=== PATIENT | male | born 1995 | race Caucasian/White ===

== ENCOUNTER 2024-11-11 06:00 | Outpatient (REF) | payer BC, SELFPAY ==
--- NOTE | ~2024-11-11 | XR_ITS ---
CLINICAL HISTORY: ALLERGIC RHINITIS 4 view sinuses Comparison: None Findings: Bones are intact. No sinus fluid. Mastoids are clear. No radiopaque foreign body. IMPRESSION: 1. No acute findings This document has been electronically signed by: Barry Loja MD on 11/11/2024 06:54:08
--- NOTE | ~2024-11-11 | XR_ITS ---
CLINICAL HISTORY: FRACTURE OF RIGHT WRIST AND HAND 4 view right wrist Comparison: None Findings: The patient is status post open reduction internal fixation for scaphoid fracture. A threaded screw is present and alignment is anatomic. Fracture appears healed. The scaphoid and lunate may be partially fused. There is a remote fracture of the ulnar styloid. No significant loss of joint space, osteophyte, or erosions. No radiopaque foreign body. IMPRESSION: Status post open reduction internal fixation for scaphoid fracture. Fracture has healed. There is at least partial fusion of the scaphoid and lunate. This document has been electronically signed by: Barry Loja MD on 11/11/2024 06:57:08
[2024-11-11 06:15] LABS: MANUAL DIFF FLAG NO
[2024-11-11 07:35] LABS: Basophils Absolute Auto 0.1 X10*3/uL (0.0-0.2); Basophils Percent Auto 1.5 % (0-2); Eosinophils Absolute Auto 0.5 X10*3/uL (0.0-0.4); Eosinophils Percent Auto 7.3 % (0-4); Hematocrit 45.7 % (42.0-52.0); Hemoglobin 15.6 g/dl (14.0-18.0); Imm Gran Abs Auto 0.03 X10*3/uL (0.00-0.03); Imm Gran Pct Auto 0.5 % (0.0-0.4); Lymphocytes Absolute Auto 2.5 X10*3/uL (1.2-4.9); Mean Corpuscular HGB Conc 34.1 g/dl (31.0-36.0); Mean Corpuscular Hemoglobin 29.4 pg (27.0-33.0); Mean Corpuscular Volume 86.1 fL (80.0-98.0); Mean Platelet Volume 11.1 fL (9.4-12.4); Monocytes Absolute Auto 0.5 X10*3/uL (0.1-1.2); Monocytes Percent Auto 7.4 % (2-11); Neutrophils Absolute Auto 2.9 x10*3/uL (2.0-8.3); Neutrophils Percent Auto 45.3 % (45-73); Platelet Count 247 X10*3/uL (160-400); Red Blood Count 5.31 X10*6/uL (4.60-5.80); Red Cell Distribution Width 12.4 % (11.0-16.0); White Blood Count 6.5 X10*3/uL (4.8-10.8)
[2024-11-11 08:13] LABS: Alanine Aminotransferase 34 U/L (0-40); Albumin Level 4.6 g/dL (3.5-5.0); Alkaline Phosphatase 56 U/L (39-117); Anion Gap 15 (12-20); Aspartate Amino Transferase 29 U/L (5-37); Bilirubin Total 0.3 mg/dL (0.0-1.0); Blood Urea Nitrogen 12 mg/dL (9-16); Calcium 9.4 mg/dL (8.4-10.2); Carbon Dioxide 25 mmol/L (22-29); Chloride 105 mmol/L (96-108); Estimated Glomerular Filt Rate > 60; Glucose Random 96 mg/dL (60-115); Potassium 4.1 mmol/L (3.3-5.1); Sodium 141 mmol/L (135-145); Total Protein 7.9 g/dL (6.5-8.0)
[2024-11-11 08:28] LABS: Thyroid Stimulating Hormone 2.65 uIU/mL (0.32-4.0)
[2024-11-11 08:44] LABS: Folate 8.2 ng/mL (> or = 4.0); Vitamin B12 435 pg/mL (200-900)
[2024-11-17 11:23] LABS: Testosterone, Free 98.1 pg/mL (35.0-155.0); Testosterone, Total 488 ng/dL (250-1100)
== END 2024-11-11 06:01 | disposition home or self-care (01) ==
LOC: HO.XRAY 06:00
PROVIDERS: PCP Internal Medicine; Visit Provider Internal Medicine
DX: R53.83 Other fatigue (principal); S62.91XD Unspecified fracture of right hand, subsequent encounter for fracture with routine healing; J30.9 Allergic rhinitis, unspecified
CPT/HCPCS: 36415; 70220; 73110; 80053; 82306; 82607; 82746; 84402; 84403; 84443; 85025

== ENCOUNTER → 2024-11-11 06:17 | Outpatient (BNV) | payer BC, SELFPAY | PROVIDERS: PCP Internal Medicine; Visit Provider Radiology Diagnostic Radiology | DX: J30.9 Allergic rhinitis, unspecified (principal); S62.001D Unspecified fracture of navicular [scaphoid] bone of right wrist, subsequent encounter for fracture with routine healing | CPT/HCPCS: 70220; 73110 ==

== ENCOUNTER 2025-01-05 07:53 | Outpatient (REF) | payer BC, SELFPAY ==
--- NOTE | ~2025-01-05 | CT_ITS ---
EXAMINATION: CT SINUSES WITHOUT IV CONTRAST HISTORY: CHRONIC RECURRENT SINUSITIS TECHNIQUE: Serial 2 mm helically acquired images were obtained through the paranasal sinuses without IV contrast material. Sagittal and coronal reformatted images were also obtained. This CT exam was performed with one or more of the following dose reduction techniques: automated exposure control, adjustment of the mA and/or kV according to patient size, use of iterative reconstruction technique. DLP: 109 mGy-cm COMPARISON: Correlation is made to plain films of the paranasal sinuses dated 11/11/2024. FINDINGS: PARANASAL SINUSES: There is small lobulated soft tissue densities in the bilateral maxillary sinuses, consistent with polyps versus mucus retentions. There is mild mucosal thickening in the bilateral frontal, ethmoid, and sphenoid sinuses. No air/fluid levels are identified. The ostiomeatal complexes are patent bilaterally. The mastoid air cells and middle ear cavities are well pneumatized bilaterally. BONES/JOINTS: There is moderate nasal septal deviation to the left. There is a barbara bullosa of the right middle turbinate. No acute fractures are identified. INCLUDED ORBITS AND BRAIN: Unremarkable. The olfactory grooves appear within normal limits bilaterally. OTHER COMMENTS AND FINDINGS: None. CT/CT sinus wo IV con IMPRESSION: Small polyps versus mucous retention cysts in the bilateral maxillary sinuses. Mild pansinus mucosal thickening. Moderate nasal septal deviation to the left. Electronically signed by: Facundo Busch MD 01/05/2025 08:43 AM EDT
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
== END 2025-01-05 07:54 | disposition home or self-care (01) ==
LOC: HO.CT 07:53
PROVIDERS: PCP Internal Medicine; Visit Provider Internal Medicine
DX: J32.9 Chronic sinusitis, unspecified (principal)
CPT/HCPCS: 70486

== ENCOUNTER → 2025-01-05 07:56 | Outpatient (BNV) | payer BC, SELFPAY | PROVIDERS: PCP Internal Medicine; Visit Provider Radiology Diagnostic Radiology | DX: J34.89 Other specified disorders of nose and nasal sinuses (principal) | CPT/HCPCS: 70486 ==